=== PATIENT | male | born 1985 | race Asian ===

== ENCOUNTER 2018-07-20 15:11 | Emergency (ER) | payer BC ==
[~2018-07-20] VITALS: Ht 177.8 cm; Wt 94.5 kg
[2018-07-20] MEDS ORDERED: normal saline 1000ML IV soln IVB ONE (16:35)
[2018-07-20] MEDS ORDERED: metoclopramide 5 mg/ml inj IV ONE (16:35)
[2018-07-20] MEDS ORDERED: ondansetron/PF 4mg/2ml inj IV ONE (16:35)
[2018-07-20] MEDS ORDERED: LORazepam 2 mg/ml vial IV ONE (16:35)
[2018-07-20] MEDS ORDERED: ketorolac trometh. 30mg/ml inj. IV ONE (16:35)
[2018-07-20 17:17] LABS: BASOPHILS % (AUTO) 0.4 % (0-1); EOSINOPHILS # (AUTO) 0.1 X10'3 (0-0.9); HEMATOCRIT 43.2 % (42.0-52.0); HEMOGLOBIN 14.7 g/dl (14.0-17.9); LYMPHOCYTES # (AUTO) 1.1 X10'3 (1.1-4.8); LYMPHOCYTES % (AUTO) 16.6 % (21-51); MEAN CORPUSCULAR HEMOGLOBIN 27.4 PG (27.0-31.0); MEAN CORPUSCULAR VOLUME 80.5 FL (78-98); MEAN PLATELET VOLUME 7.1 FL (7.4-10.4); MONOCYTES # (AUTO) 0.5 X10'3 (0-0.9); MONOCYTES % (AUTO) 7.3 % (2-12); NEUTROPHILS # (AUTO) 4.9 X10'3 (1.8-7.7); NEUTROPHILS % (AUTO) 74.7 % (42-75); PLATELET COUNT 298 X10'3 (140-440); RED BLOOD COUNT 5.37 X10'6 (4.70-6.10); RED CELL DISTRIBUTION WIDTH 13.5 % (11.5-14.5); WHITE BLOOD COUNT 6.6 X10'3 (4.5-11.0)
[2018-07-20 17:21] LABS: ALANINE AMINOTRANSFERASE 43 U/L (12-78); ALBUMIN 3.9 G/DL (3.4-5.0); ALBUMIN/GLOBULIN RATIO 1.1 (1.1-1.5); ALKALINE PHOSPHATASE 84 IU/L (46-116); ANION GAP 8 (8-16); ASPARTATE AMINO TRANSFERASE 22 U/L (10-37); BILIRUBIN,TOTAL 0.5 MG/DL (0.1-1.0); BLOOD UREA NITROGEN 11 MG/DL (7-18); BUN/CREATININE RATIO 10.5 (5.4-32.0); CHLORIDE 104 MMOL/L (99-107); CREATININE 1.05 MG/DL (0.60-1.10); GLUCOSE 94 MG/DL (70-104); POTASSIUM 3.7 MMOL/L (3.5-5.1); SODIUM 139 MMOL/L (135-145); TOTAL CARBON DIOXIDE 27.3 MMOL/L (24-32); TOTAL PROTEIN 7.3 G/DL (6.4-8.2); eGFR 82 ML/MIN
[2018-07-20 17:30] VITALS: BP 149/106
[2018-07-20] MEDS ORDERED: cloNIDine 0.1 mg tablet PO ONE (17:35)
== END 2018-07-20 18:09 | disposition home or self-care (01) ==
LOC: ER 15:11
DX: G44.209 Tension-type headache, unspecified, not intractable (principal); I10 Essential (primary) hypertension
CPT/HCPCS: 36415; 80053; 85025; 96374; 96375; 99283; J1885; J2060; J2405; J2765; J7030